=== PATIENT | female | born 1940 | race Caucasian/White ===

== ENCOUNTER 2018-01-27 15:47 | Emergency (ER) | payer MEDICARE, BC ==
[~2018-01-27] VITALS: Ht 149.9 cm; Wt 60.0 kg
[2018-01-27] MEDS ORDERED: ondansetron/PF 4mg/2ml inj IM ONE (16:00)
[2018-01-27] MEDS ORDERED: normal saline 1000ML IV soln IVB ONE (16:00)
[2018-01-27 16:31] LABS: BASOPHILS % (AUTO) 0.4 % (0-1); EOSINOPHILS # (AUTO) 0.2 X10'3 (0-0.9); EOSINOPHILS % (AUTO) 3.7 % (0-6); HEMATOCRIT 34.8 % (35.0-45.0); HEMOGLOBIN 11.7 g/dl (12.0-16.0); LYMPHOCYTES # (AUTO) 0.8 X10'3 (1.1-4.8); LYMPHOCYTES % (AUTO) 11.7 % (21-51); MEAN CORPUSCULAR HEMOGLOBIN 29.1 PG (27.0-31.0); MEAN CORPUSCULAR HGB CONC 33.6 % (33.0-36.5); MEAN CORPUSCULAR VOLUME 86.8 FL (78-98); MEAN PLATELET VOLUME 7.7 FL (7.4-10.4); MONOCYTES # (AUTO) 0.7 X10'3 (0-0.9); MONOCYTES % (AUTO) 11.5 % (2-12); NEUTROPHILS # (AUTO) 4.7 X10'3 (1.8-7.7); NEUTROPHILS % (AUTO) 72.7 % (42-75); PLATELET COUNT 365 X10'3 (140-440); RED CELL DISTRIBUTION WIDTH 15.8 % (11.5-14.5); WHITE BLOOD COUNT 6.4 X10'3 (4.5-11.0)
[2018-01-27 16:56] LABS: PROTHROMBIN TIME 10.6 SECONDS (9.0-12.0)
[2018-01-27 16:57] LABS: ALANINE AMINOTRANSFERASE 24 U/L (12-78); ALBUMIN 3.2 G/DL (3.4-5.0); ALBUMIN/GLOBULIN RATIO 0.9 (1.1-1.5); ALKALINE PHOSPHATASE 128 IU/L (46-116); ANION GAP 12 (8-16); ASPARTATE AMINO TRANSFERASE 22 U/L (10-37); BILIRUBIN,TOTAL 0.5 MG/DL (0.1-1.0); BLOOD UREA NITROGEN 9 MG/DL (7-18); BUN/CREATININE RATIO 10.2 (6.6-38.0); CALCIUM 9.9 MG/DL (8.5-10.1); CHLORIDE 101 MMOL/L (99-107); CREATININE 0.88 MG/DL (0.40-0.90); GLUCOSE 95 MG/DL (70-104); PARTIAL THROMBOPLASTIN TIME 28 SECONDS (22-32); POTASSIUM 3.6 MMOL/L (3.5-5.1); SODIUM 139 MMOL/L (135-145); TOTAL CARBON DIOXIDE 26.4 MMOL/L (24-32); TOTAL PROTEIN 6.8 G/DL (6.4-8.2); eGFR 63 ML/MIN
[2018-01-27] MEDS ORDERED: iohexol 350MG/ML 100ml bottle IV ONE (17:17)
[2018-01-27 18:13] LABS: CLARITY,URINE CLEAR (Clear); COLOR,URINE STRAW (Yellow); GLUCOSE, URINE NEGATIVE (Neg); KETONES,URINE NEGATIVE (Neg); LEUKOCYTE ESTERASE ,URINE NEGATIVE (Neg); NITRITES, URINE NEGATIVE (Neg); OCCULT BLOOD,URINE NEGATIVE (Neg); PH,URINE 7.5 (4.8-8.0); PROTEIN,URINE NEGATIVE (Neg); UROBILINOGEN,URINE 0.2 E.U/dL (0.2-1.0)
[2018-01-27 18:14] LABS: UA COLLECTION TYPE CLN CATCH MIDSTREAM
[2018-01-27] MEDS ORDERED: ONDA4TAB9 PO (18:35)
[2018-01-27 19:06] VITALS: BP 158/97
== END 2018-01-27 19:09 | disposition home or self-care (01) ==
LOC: ER 15:48
DX: S22.20XA Unspecified fracture of sternum, initial encounter for closed fracture (principal); R07.89 Other chest pain; Z98.890 Other specified postprocedural states; Z88.1 Allergy status to other antibiotic agents; Z88.5 Allergy status to narcotic agent; X58.XXXA Exposure to other specified factors, initial encounter; Y93.89 Activity, other specified; Y92.89 Other specified places as the place of occurrence of the external cause; Y99.9 Unspecified external cause status
CPT/HCPCS: 36415; 71275; 80053; 81003; 83880; 84484; 85025; 85610; 85730; 93005; 96374; 99285; J2405; Q9967; 96372